=== PATIENT | female | born 1970 | race Caucasian/White ===

== ENCOUNTER 2019-02-25 16:16 | Outpatient (CLI) | payer OTHER ==
[2019-02-25 16:50] LABS: BASOPHILS # (AUTO) 0.1 10^3/uL (0.0-0.1); BASOPHILS % (AUTO) 0.9 %; EOSINOPHILS # (AUTO) 0.1 10^3/uL (0.0-0.7); EOSINOPHILS % (AUTO) 1.2 %; HGB - HEMOGLOBIN 11.1 g/dL (12.0-16.0); LYMPHOCYTES # (AUTO) 1.9 10^3/uL (1.5-3.5); LYMPHOCYTES % (AUTO) 21.4 %; MEAN CORPUSCULAR HEMOGLOBIN 28.4 pg (27.0-31.0); MEAN CORPUSCULAR HGB CONC 31.9 g/dL (32.0-36.0); MEAN PLATELET VOLUME 9.7 fL (7.9-10.8); MONOCYTES # (AUTO) 0.8 10^3/uL (0.0-1.0); MONOCYTES % (AUTO) 8.8 %; NEUTROPHILS % (AUTO) 67.3 %; PLT - PLATELET COUNT 296 10^3/uL (130-450); RED BLOOD COUNT 3.91 10^6/uL (4.20-5.40); RED CELL DISTRIBUTION WIDTH 21.2 % (12.0-15.0); WHITE BLOOD COUNT 8.9 x10^3/uL (4.8-10.8)
[2019-02-25 16:52] LABS: BILIRUBIN,URINE NEGATIVE (NEGATIVE); GLUCOSE, URINE (UA) NEGATIVE (NEGATIVE); KETONES,URINE (UA) NEGATIVE (NEGATIVE); LEUKOCYTE ESTERASE, URINE TRACE (NEGATIVE); NITRITE,URINE NEGATIVE (NEGATIVE); OCCULT BLOOD,URINE LARGE (NEGATIVE); PH,URINE 5.5 PH (5.0-7.5); PROTEIN,URINE NEGATIVE (NEGATIVE); UROBILINOGEN,URINE 0.2 (NORMAL) E.U./dL (NORMAL)
[2019-02-25 16:53] LABS: CLARITY,URINE CLOUDY (CLEAR)
[2019-02-25 17:11] LABS: RBC,URINE TNTC /HPF (0-5); SQUAMOUS EPITHELIAL CELL,UR FEW Squamous (<= Few)
[2019-02-25 17:12] LABS: BACTERIA,URINE Moderate /HPF (None Seen); MUCUS,URINE Moderate Strands
[2019-02-25 17:23] LABS: PLATELET MORPHOLOGY NORMAL APPEARANCE (NORMAL); RBC MORPHOLOGY (MULTIPLE) 1+ ANISOCYTOSIS (NORMAL)
[2019-02-25 17:24] LABS: PLATELET ESTIMATE, MANUAL NORMAL (130-450,000) (NORMAL)
[2019-02-25 17:50] LABS: THYROID STIMULATING HORMONE 1.27 uIU/mL (0.34-5.60)
[2019-02-25 17:52] LABS: FREE T4 (FREE THYROXINE) 0.77 ng/dL (0.58-1.64)
--- NOTE | 2019-02-25 19:36 | Ultrasound Report ---
Reason: DYSFUNCTIONAL UTERINE BLEEDING Procedure Date: 02/25/2019 Accession Number: [id number] / [id number] Procedure: US - Pelvic Complete CPT Code: Final Report FULL RESULT: EXAM: PELVIC ULTRASOUND EXAM DATE: 02/25/2019 06:17 PM. CLINICAL HISTORY: DYSFUNCTIONAL UTERINE BLEEDING. COMPARISON: None. TECHNIQUE: Realtime transabdominal pelvic scan performed to identify the uterus and adnexa and as an overview of other pelvic structures, followed by transvaginal scan to provide greater detail of the uterus and adnexa, with static image documentation. FINDINGS: Uterus: 9.9 x 5.7 x 5.4 cm, volume 160 cc. Retroverted position. Heterogeneous echotexture with probable fibroids. Masses: Lower uterine segment fibroid measures approximately 3.8 cm and appears transmural. Fundal fibroid measures approximate 1.8 cm and appears submucosal. Endometrium: 15 mm. Heterogeneous with no discrete lesion identified. Cervix: Unremarkable. Nabothian cysts. Right Ovary: 3.3 x 2.1 x 2.7 cm, volume 9.8 cc. Follicles. Dominant follicle measures 1.8 cm. Normal echotexture and blood flow. Left Ovary: 2.7 x 3 x 2 cm, volume 8.6 cc. Small follicles. Normal echotexture and blood flow. Free Fluid: None. Other: None. IMPRESSION: Heterogeneous uterine echotexture containing a few probable fibroids. Dominant fibroid appears lower uterine segment measuring approximately 3.8 cm. Endometrium appears heterogeneous with no discrete lesions visualized. RADIA
== END 2019-02-25 16:17 | disposition home or self-care (01) ==
LOC: DI 16:16
PROVIDERS: ATTEND Family Medicine
DX: D25.1 Intramural leiomyoma of uterus (principal); D25.0 Submucous leiomyoma of uterus; R63.5 Abnormal weight gain
CPT/HCPCS: 36415; 76856; 81001; 81003; 84439; 84443; 84481; 85025; 87086

== ENCOUNTER 2019-03-25 12:35 | Day surgery (SDC) | payer OTHER ==
--- NOTE | 2019-03-25 02:29 | HISTORY & PHYSICAL EXAMINATION ---
HPI - History of Present Illness HPI Comment/Other: CC: PreOp Consult: Hysteroscopy D&C HPI: Pt is in clinic today for a preop consult for a hysteroscopy D&C ...................................................................MARTINA Andino March 24, 2019 2:47 PM Patient is a 48 yo here for preop evaluation for hysteroscopy D&C. She was alst seen in clinic on 03/09/19 with complaint of DUB and abdominal distention. She recently returned to [facility] from [place]. She has had nearly non- stop bleeding since 11/30/18. She was given DMA on 02/27/19 and her bleedng stopped a few days later. That has been the first time she was without VB since November. She had been soaking a pad/hr. HCT was 28.6 in ER On 02/01/19 and she was started on iron. She has undergone a pelvic us that showed a 15 mm endometrium and a 1.8 cm submucosal fibroid. Her abdomne is distended and she feels bloated with some pulling discomfort at the edge of the costsl margin. Has had a 13# weight gain in the last [address] scan performed at [facility] but images have ot yet been scanned into system. Bleeding has been controlled on progesterone No changes in health hx since time of prior exam. SA with a male partner. Vasectomy for contraception. No STIs or abnl pap smear. No dyspareunia. Current Allergies: No Known Allergies Current Meds: No Known Medications Questionnaire Would you like to become in the next year? No Are you currently using contraception? Yes Current contraception: Depo Provera injection Allergies: No Known Allergies Medications: No Known Medications Problems: Preoperative exam (ICD-V72.84) (YQU38-K92.818) Abdominal distention (ICD-787.3) (XIN48-D72.0) Fibroids, uterus (ICD-218.9) (FJZ11-U62.9) Enlarged uterus (ICD-621.2) (UND93-Q19.2) Weight gain (ICD-783.1) (ZLT63-X55.5) Dysfunctional uterine bleeding (ICD-626.8) (PFA52-C16.8) Risk Factors: Smoked Tobacco Use: Former smoker Cigarettes: Yes -- 1pk pack(s) per day,Smokeless Tobacco Use: Never Passive Smoke Exposure: no HIV High Risk Behavior: no Caffeine Use: 2 drinks per day Exercise: no Seatbelt Use: 100 % Sun Exposure: occasionally Alcohol Use: no Drug Use: no Vital Signs: Patient Profile: 48 Years Old Female Height: 68 inches BP sittin / 80 Cuff size: regular Vitals Entered By: MARTINA Andino (March 24, 2019 2:47 PM) Meds Reviewed: Done Allergies Reviewed: Done No known meds: T No known allergies: T Past Medical History: Heavy Vaginal Bleeding Anemia Chronic back pain Past Surgical History: Bilateral Breast Implants- 05/2013 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 Physical Constitutional: Constitutional: alert, no acute distress, well hydrated, well developed. Skin: normal turgor, normal color. Head: NCAT Eyes: no scleral icterus or conjunctival injection Neck: supple, no adenopathy. Cardiovascular: RRR. Respiratory: no respiratory distress, clear to auscultation. Abdomen: Distended and firm. No fluid wave Spine: normal mobility. Extremities: full joint motion, no deformities. Neurologic: normal. Psych: affect and mood appropriate, normal interaction, good eye contact. Vulva: normal appearance, no lesions or masses. Urethra: normal. Vagina: normal, rugated, physiologic discharge, no lesions, no masses. Cervix: normal, no motion tenderness, no lesions. Uterus: Enlarged and retroverted; somewhat fixed in the posterior pelvis. Adnexa: normal, no masses. Impression & Recommendations: Problem # 1: Preoperative exam (ICD-V72.84) (BXI19-L43.818) Orders: PRE OP -[id number] (CPT-[id number]) Risks, benefits, and alternatives were reviewed. Risks include, but are not limited to, infection, bleeding, damage to nearby tissue and organs. 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
[~2019-03-25 12:35] MED LIST: ACETAMINOPHEN 1,000 MG/100 ML 100 ML IV ONE; CELECOXIB 100 MG CAPSULE PO ONE; GABAPENTIN 400 MG CAPSULE ONE
[2019-03-25] MEDS ORDERED: PROPOFOL 200 MG/20 ML VIAL IVP ONE (12:36)
[2019-03-25] MEDS ORDERED: ACETAMINOPHEN 1,000 MG/100 ML 100 ML IV ONE (12:36)
[2019-03-25] MEDS ORDERED: MIDAZOLAM 2 MG/2 ML VIAL IVP ONE (12:36)
[2019-03-25] MEDS ORDERED: fentaNYL 100 MCG/2 ML VIAL IVP ONE (12:36)
[2019-03-25] MEDS ORDERED: DEXAMETHASONE 4 MG/ML VIAL IVP ONE (12:36)
[2019-03-25] MEDS ORDERED: LACTATED RINGERS 1,000 ML IV ONE (12:40)
[2019-03-25 13:24] LABS: BASOPHILS # (AUTO) 0.1 10^3/uL (0.0-0.1); BASOPHILS % (AUTO) 1.1 %; EOSINOPHILS # (AUTO) 0.1 10^3/uL (0.0-0.7); EOSINOPHILS % (AUTO) 1.7 %; HGB - HEMOGLOBIN 12.6 g/dL (12.0-16.0); LYMPHOCYTES # (AUTO) 1.9 10^3/uL (1.5-3.5); LYMPHOCYTES % (AUTO) 26.3 %; MEAN CORPUSCULAR HGB CONC 31.9 g/dL (32.0-36.0); MEAN CORPUSCULAR VOLUME 87.8 fL (81.0-99.0); MEAN PLATELET VOLUME 9.2 fL (7.9-10.8); MONOCYTES # (AUTO) 0.7 10^3/uL (0.0-1.0); MONOCYTES % (AUTO) 10.2 %; NEUTROPHILS # (AUTO) 4.4 10^3/uL (1.5-6.6); NEUTROPHILS % (AUTO) 60.4 %; PLT - PLATELET COUNT 286 10^3/uL (130-450); RED CELL DISTRIBUTION WIDTH 16.1 % (12.0-15.0); WHITE BLOOD COUNT 7.3 x10^3/uL (4.8-10.8)
[2019-03-25] MEDS ORDERED: BUPIVACAINE 0.25% PF 30 ML VIAL ONE (14:19)
--- NOTE | 2019-03-25 15:47 | ANESTHESIA ---
Pre-Anesthesia VS, & Labs - Diagnosis thickened endometrium, submucosal fibroid - Procedure Myosure hysteroscopy, D&C Height 5 ft 8 in Weight (kg) 74.9 kg - NPO >8 hours - Is Patient ?: No - Lab Results Current Lab Results: Laboratory Tests 03/25/19 13:18: WBC 7.3, RBC 4.50, Hgb 12.6, Hct 39.5, MCV 87.8, MCH 28.0, MCHC 31.9 L, RDW 16.1 H, Plt Count 286, MPV 9.2, Neut # (Auto) 4.4, Lymph # (Auto) 1.9, [place] # (Auto) 0.7, Eos # (Auto) 0.1, Baso # (Auto) 0.1, Absolute Nucleated RBC 0.00, Nucleated RBC % 0.0 Lab results reviewed: Yes Fish Bones: 03/25/19 13:18 Home Medications and Allergies Home Medications: Ambulatory Orders No Known Home Medications 03/16/19 No Known Home Medications 03/16/19 Allergies/Adverse Reactions: Allergies Allergy/AdvReac Type Severity Reaction Status Date / Time No Known Drug Allergies Allergy Verified 03/16/19 10:48 Anes History & Medical History - Anesthetic History Anesthesia Complications: reports: Post-Operative Nausea/Vomiting Family history of Anesthesia Complications: Denies Family history of Malignant Hyperthermia: Denies - Medical History Cardiovascular: reports: None Pulmonary: reports: None Gastrointestinal: reports: None Urinary: reports: None Musculoskeletal: reports: None Endocrine/Autoimmune: reports: None Skin: reports: None - Surgical History Gynecologic: Breast implants Exam General: Alert, Oriented x3, Cooperative Dental: WNL Mouth Openin Fingerbreadth Neck Mobility: Normal Mallampati classification: III Thyromental Distance: 4-6 cm Respiratory: Lungs clear, Normal breath sounds, No respiratory distress, No accessory muscle use Cardiovascular: Regular rate Neurological: Normal speech Mental/Cognitive Status: Alert/Oriented X3, Normal for patient Cognitive Status: Within normal limits Plan Anesthesia Type: General Consent for Procedure(s) Verified and Reviewed: Yes Code Status: Attempt Resuscitation ASA classification: 2-Mild systemic disease Is this case an emergency?: No
[2019-03-25 16:06] LABS: HCG UR QUAL NEGATIVE
[2019-03-25] MEDS ORDERED: BUPIVACAINE 0.25% PF 30 ML VIAL SUBQ ONE (16:45)
[2019-03-25] MEDS ORDERED: KETOROLAC 30 MG/ML VIAL IVP PRN (17:13)
[2019-03-25] MEDS ORDERED: oxyCODONE 5 MG TABLET PO PRN (17:13)
--- NOTE | 2019-03-25 17:15 | OPERATIVE REPORT ---
Operative Report - General Planned Procedure: Hysteroscopy D&C with possible polypectomy/myomectomy Pre-Op Diagnosis: Dysfunctional uterine bleeding, thickened EMS Procedure Performed: Hysteroscopy D&C and polypectomy Post Op Diagnosis: Same - Procedure Note Primary Surgeon: Elo Luong MD Anesthesia Provider: Marlo Buchanan CRNA Anesthesia Technique: General ET tube Pathology: Uterine contents IV Fluids (mL): 300 Estimated Blood Loss (mL): 10 Indications: Patient is a 48 yo with DUB and abdominal distention. She recently returned to [facility] from [place]. She has had nearly non- stop bleeding since 11/30/18. She was given DMPA on 02/27/19 and her bleeding stopped a few days later. That wasthe first time she was without VB since November. She had been soaking a pad/hr. HCT was 28.6 in ER On 02/01/19 and she was started on iron. She has undergone a pelvic us that showed a 15 mm endometrium and a 1.8 cm submucosal fibroid. Findings: Uterine cavity with thick polypoid lining. Tubal ostia visualized bilaterally. Complications: none - Other Other Information/Narrative: Risks benefits and alternatives to the procedure were reviewed. Consent was again confirmed. Patient was taken to the operating room where she underwent general anesthesia. She was positioned in dorsolithotomy position with legs resting in yellowfin stirrups. She was prepped and draped in the usual sterile fashion. Preoperative antibiotics were not indicated. Preoperative checklist was performed. Exam under anesthesia was performed. Speculum was placed in the vagina and the cervix was visualized. Single-tooth tenaculum was placed at the anterior cervical lip. Paracervical block was administered using a total of 30 cc of 1% lidocaine with epinephrine was injected at the 4:00 and 8:00 positions lateral to the portio of the cervix. The cervical os was serially dilated with Hegar dilators to accommodate the caliber of the diagnostic hysteroscope. Uterus sounded to 9 cm. The hysteroscope was inserted and findings were noted as above. The hysteroscopic morcellator was inserted through the operative port. The intrauterine polyps were morcellated under direct visualization. Uterine cavity was smooth at close of the procedure. Hysteroscope was removed. All instruments were removed from the uterus. Tenaculum was removed. Tenaculum sites were noted to be hemostatic. All instruments were removed from the vagina. Procedure was well-tolerated without complication. Fluid deficit: 470 cc NS
[2019-03-25 17:50] VITALS: BP 122/82
== END 2019-03-25 12:36 | disposition home or self-care (01) ==
LOC: SDS 12:35
PROVIDERS: ATTEND Obstetrics & Gynecology
PROC: 0UDB8ZX Extraction of Endometrium, Via Natural or Artificial Opening Endoscopic, Diagnostic (ICD-10-PCS; 2019-03-25)
PROC: 0UB98ZZ Excision of Uterus, Via Natural or Artificial Opening Endoscopic (ICD-10-PCS; principal; 2019-03-25 14:15)
DX: D25.0 Submucous leiomyoma of uterus (principal); D64.9 Anemia, unspecified; Z87.891 Personal history of nicotine dependence; Z98.82 Breast implant status
CPT/HCPCS: 58561; 81025; 85025; A9270; J0131; J7120

== ENCOUNTER 2020-07-26 13:55 | Outpatient (CLI) | payer OTHER ==
[2020-07-26 14:10] LABS: BASOPHILS # (AUTO) 0.1 10^3/uL (0.0-0.1); BASOPHILS % (AUTO) 1.3 %; EOSINOPHILS # (AUTO) 0.1 10^3/uL (0.0-0.7); EOSINOPHILS % (AUTO) 1.4 %; HCT - HEMATOCRIT 38.7 % (37.0-47.0); HGB - HEMOGLOBIN 13.2 g/dL (12.0-16.0); LYMPHOCYTES # (AUTO) 2.1 10^3/uL (1.5-3.5); LYMPHOCYTES % (AUTO) 29.3 %; MEAN CORPUSCULAR HEMOGLOBIN 30.8 pg (27.0-31.0); MEAN CORPUSCULAR HGB CONC 34.1 g/dL (32.0-36.0); MEAN CORPUSCULAR VOLUME 90.2 fL (81.0-99.0); MEAN PLATELET VOLUME 9.6 fL (7.9-10.8); MONOCYTES # (AUTO) 0.5 10^3/uL (0.0-1.0); MONOCYTES % (AUTO) 7.3 %; NEUTROPHILS # (AUTO) 4.2 10^3/uL (1.5-6.6); NEUTROPHILS % (AUTO) 60.3 %; PLT - PLATELET COUNT 276 10^3/uL (130-450); RED BLOOD COUNT 4.29 10^6/uL (4.20-5.40); RED CELL DISTRIBUTION WIDTH 12.7 % (12.0-15.0)
[2020-07-26 14:21] LABS: ALBUMIN 4.5 g/dL (3.2-5.5); ALBUMIN/GLOBULIN RATIO 1.4 (1.0-2.2); BILIRUBIN,TOTAL 0.8 mg/dL (0.2-1.0); CALCIUM 9.6 mg/dL (8.5-10.3); CREATININE 0.7 mg/dL (0.4-1.0); POTASSIUM 3.6 mmol/L (3.5-5.0); TOTAL PROTEIN 7.8 g/dL (6.7-8.2)
[2020-07-26 14:39] LABS: THYROID STIMULATING HORMONE 1.28 uIU/mL (0.34-5.60)
[2020-07-26 14:45] LABS: FERRITIN 14.2 ng/mL (11.0-306.8)
== END 2020-07-26 13:56 | disposition home or self-care (01) ==
LOC: LAB 13:55
PROVIDERS: ATTEND Family Medicine
DX: N93.8 Other specified abnormal uterine and vaginal bleeding (principal)
CPT/HCPCS: 36415; 80053; 82728; 84443; 85025

== ENCOUNTER 2020-11-20 10:51 | Outpatient (CLI) | payer OTHER ==
[2020-11-20 11:10] LABS: BASOPHILS # (AUTO) 0.1 10^3/uL (0.0-0.1); BASOPHILS % (AUTO) 1.2 %; EOSINOPHILS # (AUTO) 0.2 10^3/uL (0.0-0.7); EOSINOPHILS % (AUTO) 2.2 %; HCT - HEMATOCRIT 42.5 % (37.0-47.0); LYMPHOCYTES # (AUTO) 1.7 10^3/uL (1.5-3.5); LYMPHOCYTES % (AUTO) 25.6 %; MEAN CORPUSCULAR HEMOGLOBIN 30.6 pg (27.0-31.0); MEAN CORPUSCULAR HGB CONC 32.9 g/dL (32.0-36.0); MEAN PLATELET VOLUME 9.2 fL (7.9-10.8); MONOCYTES # (AUTO) 0.6 10^3/uL (0.0-1.0); NEUTROPHILS # (AUTO) 4.2 10^3/uL (1.5-6.6); NEUTROPHILS % (AUTO) 61.6 %; PLT - PLATELET COUNT 294 10^3/uL (130-450); RED BLOOD COUNT 4.57 10^6/uL (4.20-5.40); RED CELL DISTRIBUTION WIDTH 12.8 % (12.0-15.0); WHITE BLOOD COUNT 6.8 x10^3/uL (4.8-10.8)
== END 2020-11-20 10:52 | disposition home or self-care (01) ==
LOC: LAB 10:51
PROVIDERS: ATTEND Obstetrics & Gynecology
DX: Z01.812 Encounter for preprocedural laboratory examination (principal); N93.8 Other specified abnormal uterine and vaginal bleeding
CPT/HCPCS: 36415; 81025; 81256; 85025; 86850; 86900; 86901

== ENCOUNTER 2020-11-22 09:41 | Day surgery (SDC) | payer OTHER ==
--- NOTE | 2020-11-22 05:57 | HISTORY & PHYSICAL EXAMINATION ---
HPI - History of Present Illness HPI Comment/Other: CC: pre op TLH HPI: Patient presents today for a pre-op appointment for a hysterectomy. Patient is a 49 yo here for preop evaluation for TLH/BS/cystoscopy for management of DUB. Patient was initially seen by me in 03/09/2019 at which time she reported heavy vaginal bleeding and abdominal distention. She had recently returned to [facility] from [place]. She has had nearly non-stop bleeding since 11/30/18. She was given DMA on 02/27/19 and her bleedng stopped a few days later. That has been the first time she was without VB since November. She had been soaking a pad/hr. HCT was 28.6 in ER On 02/01/19 and she was started on iron. At that time, she had undergone a pelvic us that showed a 15 mm endometrium and a 1.8 cm submucosal fibroid with uterus 9.9 cm in greatest dimension . She underwent a hysteroscopy D&C in March of 2019. Benign pathology. She has been having increasing bleeding in the last few months. Had a cycle that lasted more than a month in duration that stopped just prior to this visit. Had seen Dr. Diez, who had provided DMPA injection. Passes large blood clots. SA with a male partner. Vasectomy for contraception. No STIs or abnl pap smear. No dyspareunia although SA limited by constant bleeding. Interested in definitive management with hysterectomy Had an EMB 10/05/20 that was wnl and pap that was wnl and HPV negative. Allergies: No Known Allergies Allergies: No Known Allergies Medications: MEDROXYPROGESTERONE ACETATE 10 MG ORAL TABLET (MEDROXYPROGESTERONE ACETATE) Take one tablet by mouth daily as needed for heavy bleeding. OK to take 2 tablets in setting of heavy flow; Route: ORAL Problems: Screening Pap smear exam for cervical cancer (ICD-V76.2) (CQD13-D23.4) Screening for hemachromatosis (ICD-V78.8) (SNB23-S66.0) Screening exam for breast cancer (ICD-V76.10) (NKJ80-L99.39) Postoperative examination (ICD-V67.00) (KFQ51-W35) Adrenal adenoma (ICD-227.0) (DRZ37-J71.00) Preoperative exam (ICD-V72.84) (COW69-W25.818) Abdominal distention (ICD-787.3) (VZY53-Y92.0) Fibroids, uterus (ICD-218.9) (IGG65-P75.9) Enlarged uterus (ICD-621.2) (GKJ58-A45.2) Weight gain (ICD-783.1) (KVT16-U52.5) Dysfunctional uterine bleeding (ICD-626.8) (AXG39-L82.8) Vital Signs: Patient Profile: 49 Years Old Female Height: 68 inches Weight: 186.2 pounds BMI: 28.41 BP sittin / 80 Cuff size: regular Pt. in pain? 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 Physical Constitutional: GEN: NAD HEAD: NCAT EYES: No scleral icterus or conjunctival injection NECK: No cervical LAD or TM CV: RRR RESP: CTAB, normal effort ABD: S&NT/ND PSYCH: appropriate affect NEURO: alert and oriented, normal gait and coordination EXT: WWP VULVA: Normal external female genitalia. Normal Bartholin's, [place]'s, urethra meatus and anus. No inguinal lymphadenopathy. VAGINA: Speculum exam reveals normal vaginal mucosa, pink, moist, rugated. Physiologic discharge and no lesions or abnormal discharge. Bleeding after EMB Cervix: Parous without lesions or disharge Uterus: Mobile, NT, normal size and contour ADNEXA: no adnexal masses or tenderness (PELVIC PORTION FROM PRIOR EXAM) Impression & Recommendations: Problem # 1: Preoperative exam (ICD-V72.84) (EGB12-D91.818) Preop examination for total laparoscopic hysterectomy and bilateral salpingectomy with cystoscopy. We discussed risks, benefits, alternatives. Reviewed all surgical procedures carry risks of bleeding, infection, and damage nearby tissue and organs. Discussed the risk of infection with blood transfusion is relatively low. Risk of HIV is 1 in 2 million nationwide, risk of hepatitis is 1/million nationwide. Reviewed for possibility of transfusion reaction and possible management with medications. She is provided consent for blood transfusion. Reviewed that anatomically speaking that the vagina is full of bacteria. We cannot fully sterilized the vagina, nor would we want to. When the incision is made to release the uterus from the abdomen, a pathway for bacteria into the otherwise sterile abdominal cavity is created. For this reason we will give her IV antibiotics. She denies any allergies to antibiotics. We discussed the anatomical proximity of other organs near the uterus including but not limited to the bladder, ureters, and bowel. As surgeons, we used a number of surgical to techniques to avoid damaging any of these other organs. We reviewed, that despite her best efforts, sometimes injury occurs to these organs. We discussed that this may cause complicated post operative course. We also discussed the possibility of converting to an open or laparoscopic procedure. She provided consent to all of the above. Written informed consent was obtained. We will proceed to surgery with a scheduled operating room date. Orders: PRE OP -[id number] (CPT-[id number]) Gender ID Identifies as Female P: 2 T: 2 Pt: 0 A: 0 SAB: 0 IAB: 0 L: 2 Cesareans: 0 Ectopics: 0 Hx Multiple Births: 0 Height: 68 (10/05/2020 12:46:21 PM) Weight: 186.2 Is pt sexualy active? yes Is patient on control? Depo Provera injection, Vasectomy Last Mammo: [email or web address] (12/24/2016 2:31:29 PM) Last Pap: Normal (10/05/2020 9:41:48 AM) Vaccines Administered/Entered: Vaccination Group: COVID-19 Historical Source: Written Record Series: 1 Vaccination: Moderna COVID-19 Vaccine Dose 1 Mfr / Lot# / Exp.Date: [employer] / [id number] / 04/19/2021 Amt. Given / Route / Site: / IM / NDC / CVX: [id number] / 207 Administered Date: 06/13/2020 C Eligibility: Not recorded VIS Date: 03/29/2019 Comments: Entered by: Karlene Negrete RN Vaccination Group: COVID-19 Historical Source: Written Record Series: 2 Vaccination: Moderna COVID-19 Vaccine Dose 2 Mfr / Lot# / Exp.Date: [employer] Amt. 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
[2020-11-22] MEDS ORDERED: CELECOXIB 100 MG CAPSULE PO ONE (09:50)
[2020-11-22] MEDS ORDERED: GABAPENTIN 400 MG CAPSULE ONE (09:50)
[2020-11-22] MEDS ORDERED: ACETAMINOPHEN 500 MG TABLET PO ONE (09:50)
[2020-11-22] MEDS ORDERED: PHENAZOPYRIDINE 100 MG TABLET PO ONE (09:51)
[2020-11-22] MEDS ORDERED: CEFAZOLIN SODIUM IN 0.9 % NACL 2 GM/100 ML BAG IV ONE (09:51)
[2020-11-22] MEDS ORDERED: LACTATED RINGERS 1,000 ML IV ONE ×2 (09:54→14:31)
[2020-11-22] MEDS ORDERED: BUPIVACAINE 0.25% PF 30 ML VIAL ONE (10:11)
[2020-11-22 10:14] LABS: HCG UR QUAL NEGATIVE
[2020-11-22] MEDS ORDERED: LIDOCAINE 2%-EPI 1:100000 20 ML MDV ONE ×2 (10:29→10:30)
[2020-11-22] MEDS ORDERED: PROPOFOL 200 MG/20 ML VIAL IVP ONE ×2 (10:37→13:43)
[2020-11-22] MEDS ORDERED: ONDANSETRON 4 MG/2 ML VIAL ONE (10:37)
[2020-11-22] MEDS ORDERED: DEXAMETHASONE 4 MG/ML VIAL ONE (10:37)
[2020-11-22] MEDS ORDERED: MIDAZOLAM 2 MG/2 ML VIAL ONE (10:37)
[2020-11-22] MEDS ORDERED: LIDOCAINE-MPF 2% 5 ML VIAL ONE (10:37)
[2020-11-22] MEDS ORDERED: fentaNYL 100 MCG/2 ML VIAL ONE (10:37)
[2020-11-22] MEDS ORDERED: METHYLENE BLUE 0.5% 50 MG/10 ML AMPULE ONE (10:43)
--- NOTE | 2020-11-22 10:51 | ANESTHESIA ---
Pre-Anesthesia VS, & Labs - Diagnosis dysfunctional uterine bleeding - Procedure total laparoscopic hysterectomy with bilateral salphingectomy, cystoscopy Vital Signs: Temp Pulse Resp BP Pulse Ox 37.2 C 91 18 120/80 99 11/22/20 10:18 11/22/20 10:18 11/22/20 10:18 11/22/20 10:18 11/22/20 10:18 Height: 5 ft 7 in Weight (kg): 84.5 kg Body Mass Index: 29.1 BMI Classification: Overweight - NPO >8 hours - Is Patient ?: No - Lab Results Current Lab Results: Laboratory Tests 11/22/20 10:33: POC Whole Bld Glucose 94 Home Medications and Allergies Medroxyprogesterone Acetate [Provera] 10 mg PO DAILY PRN 11/14/20 Allergies/Adverse Reactions: Allergies Allergy/AdvReac Type Severity Reaction Status Date / Time No Known Drug Allergies Allergy Verified 03/16/19 10:48 Anes History & Medical History - Anesthetic History Anesthesia Complications: reports: Post-Operative Nausea/Vomiting - Medical History Cardiovascular: reports: None Pulmonary: reports: None Gastrointestinal: reports: None Urinary: reports: None Musculoskeletal: reports: None Endocrine/Autoimmune: reports: None Skin: reports: None History of Cancer?: No - Surgical History Gynecologic: reports: Breast implants, Other Exam General: Alert, Oriented x3, Cooperative Dental: WNL Mouth Opening: Greater than 4 Fingerbreadths Mallampati classification: II Thyromental Distance: greater than 6 cm Respiratory: Lungs clear Cardiovascular: Regular rate, Normal S1, Normal S2 Plan Anesthesia Type: General Consent for Procedure(s) Verified and Reviewed: Yes Code Status: Attempt Resuscitation ASA classification: 2-Mild systemic disease Is this case an emergency?: No
[2020-11-22] MEDS ORDERED: ONDANSETRON 4 MG/2 ML VIAL IVP PRN (10:52)
[2020-11-22] MEDS ORDERED: MORPHINE 2 MG/ML CARPUJECT IVP PRN (10:52)
[2020-11-22] MEDS ORDERED: HYDROmorphone 0.5 MG/0.5 ML SYRINGE IVP PRN (10:52)
[2020-11-22] MEDS ORDERED: NALOXONE 0.4 MG/ML VIAL IVP PRN (10:52)
[2020-11-22] MEDS ORDERED: ATROPINE ABBOJECT 1 MG/10 ML SYRINGE IVP PRN (10:52)
[2020-11-22] MEDS ORDERED: METOCLOPRAMIDE 10 MG/2 ML VIAL IVP PRN (10:52)
[2020-11-22] MEDS ORDERED: fentaNYL 100 MCG/2 ML VIAL IVP PRN (10:52)
[2020-11-22] MEDS ORDERED: ePHEDrine 50 MG/ML VIAL IVP PRN (10:52)
[2020-11-22] MEDS ORDERED: SCOPOLAMINE PATCH TOP ONE (10:59)
[2020-11-22] MEDS ORDERED: LACTATED RINGERS 1,000 ML IV SCH (11:00)
[2020-11-22] MEDS ORDERED: LIDOCAINE 2%-EPI 1:100000 20 ML MDV SUBQ ONE (11:33)
[2020-11-22] MEDS ORDERED: BUPIVACAINE 0.25% PF 30 ML VIAL SUBQ ONE (11:33)
[2020-11-22] MEDS ORDERED: METHYLENE BLUE 0.5% 50 MG/10 ML AMPULE IR ONE (11:33)
[2020-11-22] MEDS ORDERED: PHENYLEPHRINE 10 MG/ML VIAL ONE (11:44)
[2020-11-22] MEDS ORDERED: ePHEDrine 50 MG/ML VIAL IVP ONE (11:44)
[2020-11-22] MEDS ORDERED: ROCURONIUM 50 MG/5 ML VIAL ONE (12:18)
[2020-11-22] MEDS ORDERED: SUGAMMADEX 200 MG/2 ML VIAL IVP ONE (12:26)
[2020-11-22] MEDS ORDERED: oxyCODONE 5 MG TABLET PO PRN (14:46)
[2020-11-22] MEDS ORDERED: ONDANSETRON ODT 4 MG TABLET TL PRN (14:46)
[2020-11-22] MEDS ORDERED: SCOPOLAMINE PATCH TOP PRN (14:46)
[2020-11-22] MEDS ORDERED: SIMETHICONE CHEW 80 MG TABLET PO PRN (14:46)
[2020-11-22] MEDS ORDERED: HYDROmorphone 1 MG/ML CARPUJECT IVP PRN (14:46)
--- NOTE | 2020-11-22 14:49 | OPERATIVE REPORT ---
Operative Report - General Planned Procedure: Total laparoscopic hysterectomy and bilateral salpingectomy with cystectomy Pre-Op Diagnosis: DUB with failed medical management Procedure Performed: Total laparoscopic hysterectomy and bilateral salpingectomy and cystoscopy Post Op Diagnosis: Same - Procedure Note Primary Surgeon: Anahi Luong MD Secondary Surgeon: Gigi Gabriel MD Anesthesia Provider: Marlo Buchanan CRNA with Gypsy Lloyd, student CHIEF PORT DIRECTOR Anesthesia Technique: General ET tube Pathology: Uterus with bilateral fallopian tubes IV Fluids (mL): 1,900 Estimated Blood Loss (mL): 50 Urine Output (mL): 200 Indications: Patient is a 49 yo here for TLH/BS/cystoscopy for management of DUB. Patient was initially seen by me in 03/09/2019 at which time she reported heavy vaginal bleeding and abdominal distention. She had recently returned to [facility] from [place]. She has had nearly non-stop bleeding since 11/30/18. She was given DMPA on 02/27/19 and her bleeding stopped a few days later. That has been the first time she was without VB since November. She had been soaking a pad/hr. HCT was 28.6 in ER On 02/01/19 and she was started on iron. At that time, she had undergone a pelvic us that showed a 15 mm endometrium and a 1.8 cm submucosal fibroid with uterus 9.9 cm in greatest dimension . She underwent a hysteroscopy D&C in March of 2019. Benign pathology. She has been having increasing bleeding in the last few months. Had a cycle that lasted more than a month in duration that stopped just prior to this visit. Had seen Dr. Diez, who had provided DMPA injection. Passes large blood clots. SA with a male partner. Vasectomy for contraception. No STIs or abnl pap smear. No dyspareunia although SA limited by constant bleeding. Interested in definitive management with hysterectomy Had an EMB 10/05/20 that was wnl and pap that was wnl and HPV negative. Findings: Enlarged uterus weighing 235g with normal appearing ovaries and fallopian tubes. Normal survey of the pelvis and abdomen with normal appearing liver edge. Complications: None - Other Other Information/Narrative: Risks benefits and alternatives of the procedure were reviewed. Consent was again confirmed. Patient was brought to the operating room and underwent general anesthesia. She was placed in dorsal lithotomy position with legs resting in yellowfin stirrups. SCDs were in place and activated. Cefazolin 2 g IV was administered prior to start of procedure. She was prepped and draped in the usual sterile fashion. Surgical timeout was performed. Bimanual exam was performed. Sterile speculum was placed. The cervix was visualized and a total of 20 cc of 2% lidocaine with 0.25% bupivicaine with epinephrine was injected into the uterosacral ligaments. The Public Health Nurse uterine manipulator was placed, confirming that the cup was flush with the vaginal fornices. It was attached to the [employer] uterine positioning system. Do catheter was placed, the bladder was drained, and the bladder was then back filled with 50 cc of dilute methylene blue. The catheter was then clamped. The base of the umbilicus was anesthetized with intradermal injection of 0.25% Marcaine. A 5 mm skin incision was made with a scalpel. A 5 mm blunt trocar was inserted under direct visualization using Visiport. Once the port was confirmed to be placed intraperitoneally, the abdomen was insufflated to 15 mmHg with CO2 gas Exploration of the abdomen and pelvis was confirmed that no injury was sustained with placement of the trocar. Two additional 5 mm ports were placed in the right and left lower quadrants, taking care to avoid the epigastric arteries, while under direct visualization via laparoscopic guidance. The abdomen was explored with the laparoscope, with findings as noted. The left fallopian tube was grasped and elevated at the fimbriated end. The u nderlying mesosalpinx was sealed and resected to the insertion point on the uterine cornua using the Ligarsure device. The round ligament on the left aspect of the uterus was sealed/transected/and divided. The uterine ovarian ligament was transected using the LigaSure bipolar device. A bladder flap was mobilized by dividing the round ligaments using the bipolar cutting forceps, and the peritoneum on the vesicouterine fold was incised to mobilize the bladder. Once the colpotomy ring was skeletonized and in position, the uterine arteries were sealed using the bipolar forceps at the level of the colpotomy ring. This was repeated on the right aspect of the uterus in the same manner. The bladder dissection was performed over the colpotomy ring. Colpotomy was performed using Harmonic scalpel resulting in separation of the uterus. The uterus was then delivered through the vagina. Attention was then turned to the vaginal cuff closure. A 2-0 Vicryl suture was passed through the left lower quadrant port. A single interrupted suture was was placed at the right vaginal cuff corner and the suture was passed through the port, elevating the corner of the vaginal cuff. A V-loc suture was then passed through the left port. The vaginal cuff was closed with a running suture using V-Loc suture. Closure of the cuff was airtight and abdominal insufflation was maintained post closure. Good hemostasis was noted. At no time was spillage of methylene blue noted in the surgical field. The vaginal cuff was visualized internally and noted to have good hemostasis. Surgicel was placed over the vaginal cuff to reinforce hemostasis. The abdomen was partially desufflated. Pedicles were observed under decreased pressure and good hemostasis was again confirmed. Abdomen was then completely desufflated. All instruments were removed from the abdomen. Skin was closed with interrupted subcuticular stitches using 4-0 Monocryl. Dermabond was applied over the suture sites. The vaginal cuff was visualized with a sterile speculum. A raw edge of the vaginal mucosa was closed with interrupted figure of 8 sutures using 2-0 Vicryl. Good hemostasis was noted. We then turned our attention to the cystoscopic portion of the procedure. Do catheter was removed and the cystoscope was inserted. Bladder was instilled with NS. A survey of the bladder showed no trauma or presence of suture in the bladder topography. Patient had been pretreated with pyridium. Vigorous ureteral jets were observed bilaterally. Cystoscope was removed after bladder was drained. Do catheter was replaced. The final sponge needle and instrument counts were correct at completion of the procedure patient was awakened taken to the postanesthesia care unit in stable condition. assisted with suturing, retraction, and completion of their side of the hysterectomy.
[2020-11-22] MEDS: ACETAMINOPHEN 500 MG TABLET PO SCH (15:46)
[2020-11-22] MEDS: KETOROLAC 30 MG/ML VIAL IVP SCH ×2 (15:46→21:20)
[2020-11-22] MEDS: LACTATED RINGERS 1,000 ML IV SCH (15:47)
--- NOTE | 2020-11-22 15:57 | ANESTHESIA POST OP EVALUATION ---
Anesthesia Post Eval - Post Anesthesia Eval Vitals: Last Vital Signs Temp 36.4 C L 11/22/20 15:15 Pulse 91 11/22/20 15:40 Resp 18 11/22/20 15:15 BP 122/74 11/22/20 15:40 Pulse Ox 98 11/22/20 15:40 CV Function Including HR & BP: Stable Pain Control: Satisfactory Nausea & Vomiting: Negative Mental Status: Baseline Respiratory Status: Airway Patent Hydration Status: Satisfactory Anesthesia Complications: None
[2020-11-22] MEDS: ceFAZolin 2 GM in SODIUM CHLORIDE 0.9% 100ML 100 ML IV SCH (20:42)
[2020-11-22] MEDS: GABAPENTIN 300 MG CAPSULE PO SCH (21:19)
[2020-11-22] MEDS: DOCUSATE SODIUM 100 MG CAPSULE PO SCH (21:19)
[2020-11-23] MEDS: ACETAMINOPHEN 500 MG TABLET PO SCH ×3 (00:14→13:41)
[2020-11-23] MEDS: LACTATED RINGERS 1,000 ML IV SCH (02:14)
[2020-11-23] MEDS: KETOROLAC 30 MG/ML VIAL IVP SCH ×2 (03:28→08:01)
[2020-11-23] MEDS: ceFAZolin 2 GM in SODIUM CHLORIDE 0.9% 100ML 100 ML IV SCH ×2 (03:29→12:34)
[2020-11-23] MEDS: GABAPENTIN 300 MG CAPSULE PO SCH ×2 (06:05→13:42)
[2020-11-23 06:23] LABS: BASOPHILS # (AUTO) 0.1 10^3/uL (0.0-0.1); BASOPHILS % (AUTO) 0.4 %; EOSINOPHILS % (AUTO) 0.2 %; HCT - HEMATOCRIT 35.8 % (37.0-47.0); HGB - HEMOGLOBIN 11.7 g/dL (12.0-16.0); LYMPHOCYTES # (AUTO) 1.7 10^3/uL (1.5-3.5); LYMPHOCYTES % (AUTO) 15.1 %; MEAN CORPUSCULAR HEMOGLOBIN 30.5 pg (27.0-31.0); MEAN CORPUSCULAR HGB CONC 32.7 g/dL (32.0-36.0); MEAN CORPUSCULAR VOLUME 93.5 fL (81.0-99.0); MEAN PLATELET VOLUME 9.6 fL (7.9-10.8); MONOCYTES % (AUTO) 9.2 %; NEUTROPHILS # (AUTO) 8.5 10^3/uL (1.5-6.6); NEUTROPHILS % (AUTO) 74.7 %; PLT - PLATELET COUNT 250 10^3/uL (130-450); RED BLOOD COUNT 3.83 10^6/uL (4.20-5.40); RED CELL DISTRIBUTION WIDTH 13.1 % (12.0-15.0); WHITE BLOOD COUNT 11.3 x10^3/uL (4.8-10.8)
[2020-11-23] MEDS: DOCUSATE SODIUM 100 MG CAPSULE PO SCH (08:00)
[2020-11-23] MEDS ORDERED: ENOXAPARIN 40 MG/0.4 ML SYRINGE SUBQ SCH (09:00)
--- NOTE | 2020-11-23 09:01 | PHARMACY PROGRESS NOTE ---
- Best Possible Medication History Admit Date and Time: Processed by: Nursing Medication History completed: Yes (MED REC COMPLETED BY NURSING) As the person ultimately responsible for medication therapy, providers are able to order a medication from an existing home medication list in [facility] via the "Reconcile Routine" prior to Confirmation of that medication by manager sales support. Such practice is discouraged except when the physician, in their clinical judgment, deems that a medical need exists for a medication without regard to previous use.
[2020-11-23 11:07] VITALS: BP 99/61
== END 2020-11-23 14:00 | disposition home or self-care (01) ==
LOC: SDS 09:41 → MS2 15:28 → SDS 11-23 14:00
PROVIDERS: ATTEND Obstetrics & Gynecology
PROC: 0UT74ZZ Resection of Bilateral Fallopian Tubes, Percutaneous Endoscopic Approach (ICD-10-PCS; 2020-11-22)
PROC: 0UT94ZZ Resection of Uterus, Percutaneous Endoscopic Approach (ICD-10-PCS; principal; 2020-11-22 10:45)
DX: N93.8 Other specified abnormal uterine and vaginal bleeding (principal); D25.0 Submucous leiomyoma of uterus
CPT/HCPCS: 36415; 58571; 81025; 85025; A9270; J0690; J1650; J3490; J7120; Q0162

== ENCOUNTER 2021-01-01 08:09 | Outpatient (CLI) | payer OTHER ==
[2021-01-01 08:30] LABS: HGB - HEMOGLOBIN 14.2 g/dL (12.0-16.0); MEAN CORPUSCULAR HEMOGLOBIN 30.3 pg (27.0-31.0); MEAN CORPUSCULAR VOLUME 91.7 fL (81.0-99.0); MEAN PLATELET VOLUME 9.3 fL (7.9-10.8); RED BLOOD COUNT 4.69 10^6/uL (4.20-5.40); RED CELL DISTRIBUTION WIDTH 12.6 % (12.0-15.0)
[2021-01-01 08:42] LABS: ALBUMIN 4.4 g/dL (3.2-5.5); ALBUMIN/GLOBULIN RATIO 1.3 (1.0-2.2); CALCIUM 9.3 mg/dL (8.5-10.3); CREATININE 0.7 mg/dL (0.4-1.0); TOTAL PROTEIN 7.7 g/dL (6.7-8.2)
[2021-01-01 09:00] LABS: THYROID STIMULATING HORMONE 0.62 uIU/mL (0.34-5.60)
[2021-01-01 09:03] LABS: FREE T4 (FREE THYROXINE) 0.75 ng/dL (0.58-1.64)
== END 2021-01-01 08:10 | disposition home or self-care (01) ==
LOC: LAB 08:09
PROVIDERS: ATTEND Obstetrics & Gynecology
DX: R00.2 Palpitations (principal); D35.00 Benign neoplasm of unspecified adrenal gland; Z13.0 Encounter for screening for diseases of the blood and blood-forming organs and certain disorders involving the immune mechanism; Z09 Encounter for follow-up examination after completed treatment for conditions other than malignant neoplasm
CPT/HCPCS: 36415; 80053; 82533; 82627; 84403; 84439; 84443; 85027

== ENCOUNTER 2021-01-11 13:00 | Outpatient (CLI) | payer OTHER ==
--- NOTE | 2021-01-12 10:06 | Mammography Report ---
BILATERAL DIGITAL SCREENING MAMMOGRAM 3D/2D WITH AUGMENTATION: 01/11/2021 CLINICAL: Routine screening. No prior exams were available for comparison. The tissue of both breasts is heterogeneously dense. T his may lower the sensitivity of mammography. Bilateral breast implants are intact. No significant masses, calcifications, or other findings are seen in either breast. IMPRESSION: NEGATIVE There is no mammographic evidence of malignancy. A 1 year screening mammogram is recommended. This exam was interpreted at Station ID: [id number]. NOTE: For mammograms, a report in lay terms will be sent to the patient. Approximately 15% of breast malignancies will not be visualized mammographically. In the management of a palpable breast mass, a negative mammogram must not discourage biopsy of a clinically suspicious lesion. Electronically Signed By: Young Stewart M.D. [facility] [place]:01/11/2021 16:12:28 ACR BI-RADS Category 1: Negative 3341F PARENCHYMAL PATTERN: (D) - The breast(s) demonstrate(s) heterogeneously dense fibroglandular vivian jacobson. BI-RADS CATEGORY: (1) - 1 RECOMMENDATION: (ANNUAL) - Recommend routine annual screening mammography. [id number] 1 year screening LATERALITY: (B)
== END 2021-01-11 13:01 | disposition home or self-care (01) ==
LOC: DI 13:00
PROVIDERS: ATTEND Obstetrics & Gynecology
DX: Z12.31 Encounter for screening mammogram for malignant neoplasm of breast (principal); Z98.82 Breast implant status

== ENCOUNTER 2021-03-08 08:00 | Emergency (ER) | payer OTHER ==
--- NOTE | 2021-03-08 08:51 | ED Physician Documentation ---
PD HPI HEAD INJURY - Stated complaint Stated Complaint: GLF - Chief complaint Chief Complaint: Trauma Hd/Nk - History obtained from History obtained from: Patient - History of Present Illness Mechanism of head injury: Fell Where head injury occurred: Home Timing - onset: Today Location of injury: Right Quality of pain: Pain Associated symptoms: Other (pressure behind right eye and loose teeth). No: LOC, AMS, Amnesia, Nausea / vomiting, Neck pain, Paresthesias, Seizures, Ear drainage, Nasal drainage Symptoms improve with: Rest Symptoms worsen with: Palpation, Movement Contributing factors: No: Anticoagulated Similar symptoms before: Has not had sx before Recently seen: Not recently seen - Additional information Additional information: Previously well 50-year-old female went outside to turn off her generator when she turned around she tripped over the cord of the generator and fell onto her face. She did not have loss of consciousness associated with this but she does have a bruise to her right eye and she has some loose teeth on the right upper. She had some bleeding from her gums. She denies any dizziness or nausea she denies any numbness or tingling denies any neck pain denies difficulty concentrating. Review of Systems Constitutional: denies: Fever Eyes: denies: Decreased vision Ears: denies: Ear pain Nose: denies: Congestion Throat: denies: Sore throat Cardiac: denies: Chest pain / pressure, Palpitations Respiratory: denies: Dyspnea, Cough GI: denies: Abdominal Pain, Nausea, Vomiting, Constipation, Diarrhea : denies: Dysuria, Frequency Musculoskeletal: denies: Neck pain, Back pain, Extremity pain PD PAST MEDICAL HISTORY - Past Medical History Cardiovascular: None Respiratory: None Endocrine/Autoimmune: None GI: None : None HEENT: Chronic vision loss Psych: None Musculoskeletal: None Derm: None - Past Surgical History /COMMERCIAL ATTACHE: Breast implants, Other - Present Medications Home Medications: Ambulatory Orders Medication Instructions Recorded Confirmed Medroxyprogesterone Acetate 10 mg PO DAILY PRN 11/14/20 11/14/20 [Provera] Acetaminophen [Acetaminophen Extra 1,000 mg PO Q8H PRN #60 tablet 11/23/20 Strength] Docusate Sodium 100Mg Capsule 100 - 200 mg PO BID PRN #60 cap 11/23/20 [Colace 100Mg Capsule] Gabapentin [Neurontin] 300 mg PO TID PRN #90 cap 11/23/20 Ibuprofen [Motrin] 600 mg PO Q6H PRN #60 tab 11/23/20 168/Iron/Folic/Omega3 1 each PO DAILY #90 cap 11/23/20 [One-A-Day -1 Softgel] oxyCODONE [Roxicodone] 2.5 - 5 mg PO Q4H PRN #24 tablet 11/23/20 - Allergies Allergies/Adverse Reactions: Allergies Allergy/AdvReac Type Severity Reaction Status Date / Time No Known Drug Allergies Allergy Verified 03/16/19 10:48 PD ED PE NORMAL - Vitals Vital signs reviewed: Yes (hypertensive ) - General General: Alert and oriented X 3, No acute distress, Well developed/nourished - HEENT HEENT: PERRL, EOMI, Ears normal, Moist mucous membranes, Pharynx benign, Other (There is ecchymosis and swelling to the right periorbital area there is no evidence of entrapment and no specific pain to the orbital ridge. There is no pain to the zygomatic arch. There is pain in the mouth without current bleeding but with loosening of the right upper teeth that is mild) - Neck Neck: Supple, no meningeal sign, No bony TTP - Respiratory Respiratory: No respiratory distress - Back Back: No spinal TTP - Derm Derm: Normal color, Warm and dry, No rash - Extremities Extremities: No deformity, No edema - Neuro Neuro: Alert and oriented X 3, boiler/chiller operator 2-12 intact, No motor deficit, No sensory deficit, Normal speech Eye Opening: Spontaneous Motor: Obeys Commands Verbal: Oriented GCS Score: 15 - Psych Psych: Normal mood, Normal affect Results - Vitals Vitals: Vital Signs - 24 hr 03/08/21 08:20 Temperature 37.3 C Heart Rate 91 Respiratory 16 Rate Blood Pressure 146/104 H O2 Saturation 98 Oxygen O2 Source Room air - Rads (name of study) maxillofacial Radiology: Prelim report reviewed (Impression: 1. No significant abnormality.), EMP read indepedently, See rad report head Radiology: Prelim report reviewed (Impression: 1. No acute intracranial abnormality.), EMP read indepedently, See rad report PD MEDICAL DECISION MAKING - ED course Complexity details: reviewed results, re-evaluated patient, considered differential, d/w patient ED course: 50-year-old female with a fall onto her face has no evidence of fracture on maxillofacial series and no evidence of intracranial hemorrhage. Departure - Departure Disposition: 01 Home, Self Care Clinical Impression: Facial contusion Qualifiers: Encounter type: initial encounter Qualified Code(s): S00.83XA - Contusion of other part of head, initial encounter Dental trauma Qualifiers: Encounter type: initial encounter Qualified Code(s): S09.93XA - Unspecified injury of face, initial encounter Condition: Stable Instructions: ED Head Injury Closed, Trauma Dental Follow-Up: Anastacio Diez MD [Primary Care Provider] - TRICIA ARREOLA [Physician No Access] - Comments: Joan, today on CT scanning of your face there is no evidence of fracture to the face or problems with internal hemorrhage in the head. If you continue to have a sensation of loosened teeth follow-up with the dentist Dr. Arreola.
--- NOTE | 2021-03-08 09:45 | CT Report ---
PROCEDURE: HEAD WO INDICATIONS: face plant concussion TECHNIQUE: Noncontrast 4.5 mm thick angled axial sections acquired from the foramen magnum to the vertex. For r adiation dose reduction, the following was used: automated exposure control, adjustment of mA and/or kV according to patient size. COMPARISON: None. FINDINGS: BRAIN PARENCHYMA: Normal parenchymal density. No acute cortical based (large territory) infarction, i ntracranial hemorrhage, mass or mass effect, or abnormal fluid collection. The density in the larger dural venous sinuses is grossly normal. VENTRICLES: Normal in size, shape, and position. BONES/SINUSES: The skull base and calvarium demonstrate no acute abnormality. The paranasal sinuses a nd mastoid air cells are well aerated. Small right frontal scalp hematoma/periorbital edema. IMPRESSION: 1.No acute intracranial abnormality. Reviewed by: Mark Thomas MD on 03/08/2021 9:44 AM [facility] Approved by: Mark Thomas MD on 03/08/2021 9:44 AM [facility] Station ID: [id number]
--- NOTE | 2021-03-08 09:54 | CT Report ---
PROCEDURE: MAXILLOFACIAL WO INDICATIONS: R periorbital pressure with teeth loose right upper TECHNIQUE: Noncontrast 1.5 mm thick axial images acquired from the mandible through the frontal sinuses, with co james and sagittal reformatting. For radiation dose reduction, the following was used: automated ex posure control, adjustment of mA and/or kV according to patient size. COMPARISON: None. FINDINGS: FACIAL BONES/SOFT TISSUES: No acute, displaced fracture or dislocation. No evidence of aggressive oss eous lesion. Right periorbital soft tissue edema. GLOBES/ORBITS: Normal in size, contour, and position. The optic nerve sheath complex is within normal limits. The extraocular muscles, intraconal fat, and extraconal fat are within normal limits. SINUSES/OTHER: The visualized paranasal sinuses and tympanomastoid cavities are well aerated IMPRESSION: 1.No significant abnormality. Reviewed by: Mark Thomas MD on 03/08/2021 9:53 AM [facility] Approved by: Mark Thomas MD on 03/08/2021 9:53 AM [facility] Station ID: [id number]
[2021-03-08 10:18] VITALS: BP 134/92
== END 2021-03-08 10:18 | disposition home or self-care (01) ==
LOC: ED 08:00
DX: S00.83XA Contusion of other part of head, initial encounter (principal); S09.93XA Unspecified injury of face, initial encounter; W18.09XA Striking against other object with subsequent fall, initial encounter; Y93.89 Activity, other specified; Y92.009 Unspecified place in unspecified non-institutional (private) residence as the place of occurrence of the external cause
CPT/HCPCS: 99282; 99284

== ENCOUNTER 2022-12-29 11:12 | Outpatient (CLI) | payer OTHER ==
[2022-12-29 12:00] LABS: BASOPHILS % (AUTO) 0.8 %; EOSINOPHILS # (AUTO) 0.1 10^3/uL (0.0-0.7); EOSINOPHILS % (AUTO) 2.7 %; HCT - HEMATOCRIT 41.8 % (37.0-47.0); HGB - HEMOGLOBIN 13.9 g/dL (12.0-16.0); LYMPHOCYTES # (AUTO) 1.5 10^3/uL (1.5-3.5); MEAN CORPUSCULAR HEMOGLOBIN 30.3 pg (27.0-31.0); MEAN CORPUSCULAR HGB CONC 33.3 g/dL (32.0-36.0); MEAN CORPUSCULAR VOLUME 91.1 fL (81.0-99.0); MEAN PLATELET VOLUME 9.2 fL (7.9-10.8); MONOCYTES # (AUTO) 0.5 10^3/uL (0.0-1.0); MONOCYTES % (AUTO) 9.7 %; NEUTROPHILS # (AUTO) 2.6 10^3/uL (1.5-6.6); NEUTROPHILS % (AUTO) 54.4 %; PLT - PLATELET COUNT 260 10^3/uL (130-450); RED BLOOD COUNT 4.59 10^6/uL (4.20-5.40); RED CELL DISTRIBUTION WIDTH 12.6 % (12.0-15.0); WHITE BLOOD COUNT 4.8 x10^3/uL (4.8-10.8)
[2022-12-29 12:12] LABS: ALBUMIN 4.7 g/dL (3.2-5.5); ALKALINE PHOSPHATASE 50 IU/L (42-121); ALT ALANINE AMINOTRANSFERASE 8 IU/L (10-60); AST ASPARTATE AMINOTRANSFERASE 13 IU/L (10-42); BUN - BLOOD UREA NITROGEN 14 mg/dL (6-20); CALCIUM 9.8 mg/dL (8.5-10.3); CARBON DIOXIDE - CO2 29 mmol/L (21-32); CHLORIDE 106 mmol/L (101-111); CHOL/HDL RATIO 3.6 (<4.4); CHOLESTEROL 258 mg/dL; CREATININE 0.7 mg/dL (0.6-1.3); GFR - MDRD 89 (>89); GLUCOSE 94 mg/dL (74-104); HDL CHOLESTEROL 72 mg/dL; LDL CHOLESTEROL,CALCULATED 168 mg/dL; LDL/HDL RATIO 2.3 (<4.4); POTASSIUM 4.2 mmol/L (3.5-4.5); SODIUM 139 mmol/L (135-145); TRIGLYCERIDES 90 mg/dL (48-352); VLDL CHOLESTEROL 18 mg/dL
[2022-12-29 12:28] LABS: THYROID STIMULATING HORMONE 0.92 uIU/mL (0.34-5.60)
== END 2022-12-29 11:13 | disposition home or self-care (01) ==
LOC: LAB 11:12
PROVIDERS: ATTEND Nurse Practitioner Family
DX: Z00.00 Encounter for general adult medical examination without abnormal findings (principal)
CPT/HCPCS: 36415; 80050; 80061; 83721

== ENCOUNTER 2023-01-11 13:54 | Outpatient (CLI) | payer OTHER ==
--- NOTE | 2023-01-14 11:32 | Mammography Report ---
BILATERAL DIGITAL SCREENING MAMMOGRAM 3D/2D WITH AUGMENTATION: 01/11/2023 CLINICAL: Routine screening. Comparison is made to exam dated: 01/11/2021 mammogram - [facility]. Both breasts are heterogeneously dense, which may obscure small masses (category c / 51-75% glandular tissue). Bilateral breast implants are intact. No significant masses, calcifications, or other findings are seen in either breast. There has been no significant interval change. IMPRESSION: NEGATIVE There is no mammographic evidence of malignancy. A 1 year screening mammogram is recommended. Based on Tyrer-Cuzick model (a risk assessment model), the patient's lifetime risk is 20.4% and her 1 0 year risk is 5.0%. If a patient has an elevated risk, a more comprehensive evaluation should be con sidered and/or a referral to a genetic counselor. The [place] [employer], [place] [employer], and NCCN Guidelines advise the consideration of Breast MRI as an adjunct to screening mammog smith in patients whose "Lifetime risk to develop breast cancer" is 20% or higher. This exam was interpreted at Station ID: [id number]. NOTE: For mammograms, a report in lay terms will be sent to the patient. Approximately 15% of breast malignancies will not be visualized mammographically. In the management of a palpable breast mass, a negative mammogram must not discourage biopsy of a clinically suspicious lesion. Electronically Signed By: Ivan mcadams/miguel angel:01/11/2023 21:34:13 letter sent: No_Letter ACR BI-RADS Category 1: Negative 3341F PARENCHYMAL PATTERN: (D) - The breast(s) demonstrate(s) heterogeneously dense fibroglandular vivian jacobson. BI-RADS CATEGORY: (1) - 1 Mammogram [id number] 1 year screening LATERALITY: (B)
== END 2023-01-11 13:55 | disposition home or self-care (01) ==
LOC: DI 13:54
DX: Z12.31 Encounter for screening mammogram for malignant neoplasm of breast (principal); R92.333 Mammographic heterogeneous density, bilateral breasts; Z98.82 Breast implant status

== ENCOUNTER 2023-01-11 14:32 | Outpatient (CLI) | payer OTHER ==
[2023-01-11 14:51] LABS: BASOPHILS # (AUTO) 0.1 10^3/uL (0.0-0.1); BASOPHILS % (AUTO) 1.1 %; EOSINOPHILS # (AUTO) 0.1 10^3/uL (0.0-0.7); EOSINOPHILS % (AUTO) 1.5 %; HCT - HEMATOCRIT 39.6 % (37.0-47.0); HGB - HEMOGLOBIN 13.3 g/dL (12.0-16.0); LYMPHOCYTES # (AUTO) 1.8 10^3/uL (1.5-3.5); LYMPHOCYTES % (AUTO) 27.4 %; MEAN CORPUSCULAR HEMOGLOBIN 30.2 pg (27.0-31.0); MEAN CORPUSCULAR HGB CONC 33.6 g/dL (32.0-36.0); MONOCYTES # (AUTO) 0.6 10^3/uL (0.0-1.0); MONOCYTES % (AUTO) 9.2 %; NEUTROPHILS # (AUTO) 3.9 10^3/uL (1.5-6.6); NEUTROPHILS % (AUTO) 60.3 %; PLT - PLATELET COUNT 289 10^3/uL (130-450); RED CELL DISTRIBUTION WIDTH 12.7 % (12.0-15.0); WHITE BLOOD COUNT 6.5 x10^3/uL (4.8-10.8)
[2023-01-11 15:07] LABS: ALBUMIN 4.5 g/dL (3.2-5.5); ALBUMIN/GLOBULIN RATIO 1.9 (1.0-2.2); ALKALINE PHOSPHATASE 57 IU/L (42-121); ALT ALANINE AMINOTRANSFERASE 12 IU/L (10-60); AST ASPARTATE AMINOTRANSFERASE 15 IU/L (10-42); BILIRUBIN,TOTAL 0.6 mg/dL (0.2-1.0); BUN - BLOOD UREA NITROGEN 12 mg/dL (6-20); CALCIUM 9.7 mg/dL (8.5-10.3); CARBON DIOXIDE - CO2 29 mmol/L (21-32); CHLORIDE 106 mmol/L (101-111); CHOL/HDL RATIO 3.4 (<4.4); CHOLESTEROL 252 mg/dL; CREATININE 0.7 mg/dL (0.6-1.3); GFR - MDRD 89 (>89); GLUCOSE 89 mg/dL (74-104); HDL CHOLESTEROL 74 mg/dL; LDL CHOLESTEROL,CALCULATED 152 mg/dL; LDL/HDL RATIO 2.1 (<4.4); POTASSIUM 4.1 mmol/L (3.5-4.5); SODIUM 139 mmol/L (135-145); TOTAL PROTEIN 6.9 g/dL (6.4-8.9); TRIGLYCERIDES 129 mg/dL (48-352); VLDL CHOLESTEROL 26 mg/dL
[2023-01-11 15:28] LABS: THYROID STIMULATING HORMONE 1.57 uIU/mL (0.34-5.60)
[2023-01-11 15:34] LABS: FERRITIN 55.3 ng/mL (11.0-306.8)
== END 2023-01-11 14:33 | disposition home or self-care (01) ==
LOC: LAB 14:32
PROVIDERS: ATTEND Family Medicine
DX: Z00.00 Encounter for general adult medical examination without abnormal findings (principal); Z13.0 Encounter for screening for diseases of the blood and blood-forming organs and certain disorders involving the immune mechanism; N95.1 Menopausal and female climacteric states; R23.2 Flushing
CPT/HCPCS: 36415; 80050; 80061; 82728; 83001; 83002; 83721

== ENCOUNTER 2023-01-25 10:34 | Outpatient (CLI) | payer OTHER ==
[2023-01-25] MEDS ORDERED: iohexoL-300 100 ML VIAL IVP ONE (11:29)
--- NOTE | 2023-01-25 17:19 | CT Report ---
PROCEDURE: ABDOMEN W/WO INDICATIONS: ADRENAL ADENOMA CONTRAST: 100ml omni 300 TECHNIQUE: 4 phase scanning was performed. After the administration of intravenous contrast, 5 mm thick section s acquired from the diaphragm to the symphysis. 5 mm coronal and sagittal reformats were acquired. For radiation dose reduction, the following was used: automated exposure control, adjustment of mA a nd/or kV according to patient size. COMPARISON: CT adrenal protocol on April 24, 2019. CT abdomen and pelvis on March 20, 2019. FINDINGS: Image quality: Excellent. Adrenals: Compared to CT dated March 20, 2019, stable left adrenal nodule measuring 1.2 x 0.8 cm (/ 23) previously 1.1 x 0.7 cm (3/16). On noncontrast phase, the Hounsfield unit is -7.4. No suspicious calcification or nodular septation. Right adrenal gland is unremarkable. OTHER: Lung bases and heart: Bilateral breast implants. Stable middle lobe subpleural 3 mm solitary pulmonar y nodule, benign (5/41). Minimal dependent atelectasis. No basilar effusion. Small hiatal hernia. Liver: Noncirrhotic morphology. No solid mass. Gallbladder and biliary tree: Unremarkable. Spleen: No splenomegaly. Splenule. Pancreas: No pancreatic ductal dilation. Kidneys and ureters: Symmetric enhancement with no hydronephrosis or nephrolithiasis bilaterally. Baldev ateral subcentimeter cortical hypodensities are too small to characterize, statistically cysts. On de layed phase imaging, there are no suspicious filling defects in the bilateral renal collecting system . Bowel and peritoneum: Stomach is decompressed, limiting evaluation, but appears grossly normal. Visua lized small and large bowel is normal in caliber, without obstruction. No pneumatosis, pneumoperitone um or portal venous gas. Lymph nodes: No central or retroperitoneal adenopathy. Vessels: No infrarenal aortic aneurysm. Bones: No acute fracture. No aggressive appearing lytic or blastic osseous lesion. Other: Tiny fat-containing umbilical hernia. IMPRESSION: 1. Compared to CT dated March 20, 2019, stable left adrenal nodule measuring 1.2 x 0.8 cm, previousl y 1.1 x 0.7 cm. On noncontrast phase, the Hounsfield unit is -7.4. 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 No dedicated follow-up needed. 2. Small hiatal hernia. Reviewed by: Benita Frausto MD on 01/25/2023 5:18 PM PST Approved by: Benita Frausto MD on 01/25/2023 5:18 PM PST Station ID: [id number]
== END 2023-01-25 10:35 | disposition home or self-care (01) ==
LOC: DI 10:34
PROVIDERS: ATTEND Family Medicine
DX: D35.00 Benign neoplasm of unspecified adrenal gland (principal); K44.9 Diaphragmatic hernia without obstruction or gangrene
CPT/HCPCS: 74170; Q9967

== ENCOUNTER 2023-02-12 06:16 | Day surgery (SDC) | payer OTHER ==
[2023-02-12] MEDS ORDERED: LACTATED RINGERS 1,000 ML IV ONE ×2 (06:35→08:24)
[2023-02-12] MEDS ORDERED: PROPOFOL 500 MG/50 ML 500 MG/50 ML VIAL ONE (06:52)
[2023-02-12] MEDS ORDERED: GLYCOPYRROLATE 1 MG/5 ML VIAL ONE (06:53)
--- NOTE | 2023-02-12 07:08 | ANESTHESIA ---
Pre-Anesthesia VS, & Labs - Diagnosis screening - Procedure colonoscopy Vital Signs: Temp Pulse Resp BP Pulse Ox O2 Flow Rate 36.4 C L 79 14 140/91 H 98 02/12/23 06:32 02/12/23 06:32 02/12/23 06:32 02/12/23 06:32 02/12/23 06:32 Height: 5 ft 8 in Weight (kg): 82.3 kg Body Mass Index: 27.6 BMI Classification: Overweight - NPO >8 hours - Is Patient ?: No - Lab Results Lab results reviewed: Yes Home Medications and Allergies Home Medications: Ambulatory Orders No Known Home Medications 02/11/23 No Known Home Medications 02/11/23 Allergies/Adverse Reactions: Allergies Allergy/AdvReac Type Severity Reaction Status Date / Time No Known Drug Allergies Allergy Verified 03/16/19 10:48 Anes History & Medical History - Anesthetic History Anesthesia Complications: reports: No previous complications Family history of Anesthesia Complications: Denies Family history of Malignant Hyperthermia: Denies - Medical History Cardiovascular: reports: None Pulmonary: reports: None Gastrointestinal: reports: None Urinary: reports: None Neuro: reports: None Musculoskeletal: reports: None Endocrine/Autoimmune: reports: None Blood Disorders: reports: None Skin: reports: None Smoking Status: Never smoker Psychosocial: reports: No issues indicated - Surgical History Gynecologic: reports: Hysterectomy, Breast implants, Other Exam General: Alert, Oriented x3, Cooperative Dental: WNL Mouth Openin Fingerbreadth Neck Mobility: Normal Mallampati classification: II Thyromental Distance: 4-6 cm Respiratory: Lungs clear Cardiovascular: Regular rate Plan Anesthesia Type: Total IV Consent for Procedure(s) Verified and Reviewed: Yes Code Status: Attempt Resuscitation ASA classification: 1-Healthy patient Is this case an emergency?: No
[2023-02-12] MEDS ORDERED: PROPOFOL 200 MG/20 ML VIAL IVP ONE ×2 (08:00→08:15)
[2023-02-12 08:54] VITALS: BP 115/68; O2SAT 99
--- NOTE | 2023-02-12 12:47 | ANESTHESIA POST OP EVALUATION ---
Anesthesia Post Eval - Post Anesthesia Eval Vitals: Last Vital Signs Temp 36.6 C 02/12/23 08:50 Pulse 72 02/12/23 08:50 Resp 16 02/12/23 08:50 BP 115/68 02/12/23 08:50 Pulse Ox 99 02/12/23 08:50 O2 Flow Rate CV Function Including HR & BP: Stable Pain Control: Satisfactory Nausea & Vomiting: Negative Mental Status: Baseline Respiratory Status: Airway Patent Hydration Status: Satisfactory Anesthesia Complications: None
== END 2023-02-12 06:17 | disposition home or self-care (01) ==
LOC: SDS 06:16
PROVIDERS: ATTEND Surgery
DX: Z12.11 Encounter for screening for malignant neoplasm of colon (principal); Z80.0 Family history of malignant neoplasm of digestive organs
CPT/HCPCS: 45378; J7120